=== PATIENT | male | born 1935 | race Caucasian/White ===

== ENCOUNTER 2017-06-10 09:20 | Emergency (ER) | payer OTHER ==
[2017-06-10 09:24] VITALS: O2SAT 98
[2017-06-10 09:25] VITALS: BMI 22.1
--- NOTE | 2017-06-10 10:23 | ED PDOC ---
HPI: Male Pain Time Seen by Provider: 06/10/17 09:28 Chief Complaint (Nursing): Male Genitourinary Chief Complaint (Provider): Male Genitourinary History Per: Patient History/Exam Limitations: no limitations Onset/Duration Of Symptoms: Days Current Symptoms Are (Timing): Still Present Associated Symptoms: Urinary Symptoms Additional Complaint(s): Vasquez is an 82 y/o male with a past medical history of hypertension and diabetes , who presents to the ED for evaluation of catheter dysfunction. 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 While here, he reports having pain and dysuria. Patient was given antibiotics from a walk-in clinic, with no improvement. Today had increased difficulty urinating and felt like the catheter was clogged. Denies fever, vomiting, and diarrhea. PMD: Unknown Past Medical History Reviewed: Historical Data, Nursing Documentation, Vital Signs Vital Signs: Last Vital Signs Temp 96.3 F L 06/10/17 09:39 Pulse 93 H 06/10/17 09:39 Resp 20 06/10/17 09:39 BP 151/67 H 06/10/17 09:39 Pulse Ox 98 06/10/17 09:39 - Medical History PMH: Benign Prostatic Hyperplasia, Hiatal Hernia, HTN - Surgical History Surgical History: Hernia Repair Other surgeries: Rectal fistula surgery, cataract surgery - Family History Family History: States: Unknown Family Hx - Home Medications Home Medications: Ambulatory Orders Medication Instructions Recorded Phenazopyridine HCl [Pyridium] 100 mg PO BID #6 tab 06/11/17 traMADol [Ultram] 50 mg PO TID PRN #12 tab 06/11/17 - Allergies Allergies/Adverse Reactions: Allergies Allergy/AdvReac Type Severity Reaction Status Date / Time Penicillins Allergy ANAPHYLAXIS Verified 06/11/17 12:45 Review of Systems ROS Statement: Except As Marked, All Systems Reviewed And Found Negative Constitutional: Negative for: Fever Gastrointestinal: Negative for: Vomiting, Diarrhea Genitourinary Male: Positive for: Dysuria, Frequency, Other (Catheter clogged) Physical Exam - Reviewed Nursing Documentation Reviewed: Yes Vital Signs Reviewed: Yes - Physical Exam Appears: Positive for: Non-toxic, No Acute Distress Head Exam: Positive for: ATRAUMATIC, NORMAL INSPECTION, NORMOCEPHALIC Eye Exam: Positive for: EOMI, Normal appearance, PERRL Neck: Positive for: Normal, Painless ROM, Supple Cardiovascular/Chest: Positive for: Regular Rate, Rhythm. Negative for: Murmur Respiratory: Positive for: Normal Breath Sounds. Negative for: Accessory Muscle Use, Respiratory Distress Gastrointestinal/Abdominal: Positive for: Normal Exam, Soft. Negative for: Tenderness Male Genital Exam: Positive for: other (Becker site appears clean, dry, intact) Extremity: Positive for: Normal ROM. Negative for: Deformity Neurologic/Psych: Positive for: Alert, Oriented - ECG O2 Sat by Pulse Oximetry: 98 (RA) Pulse Ox Interpretation: Normal Medical Decision Making Medical Decision Making: Time: 9:57 Initial Plan: --Urine culture --Urinalysis --Becker catheter insertion Time: 11:00 --Becker had small clot when nurse changed it, now freely flowing clear urine --Patient will continue antibiotics and follow up with urologist in 1-2 days, referral provided today. --There is agreement to discharge plan. Return if symptoms persist or worsen. discuss with pt and anton Clinical Impression: UTI, Becker catheter in place Scribe Attestation: Documented by Shauna Givens, acting as a scribe for Obed Valverde MD Provider Scribe Attestation: All medical record entries made by the Scribe were at my direction and personally dictated by me. I have reviewed the chart and agree that the record accurately reflects my personal performance of the history, physical exam, medical decision making, and the department course for this patient. I have also personally directed, reviewed, and agree with the discharge instructions and disposition. Disposition - Clinical Impression Clinical Impression: Urinary tract infection, Becker catheter in place - Patient ED Disposition Is Patient to be Admitted: No Counseled Patient/Family Regarding: Diagnosis, Need For Followup - Disposition Referrals: [facility] [Outside] Js Rosario MD [Medical Doctor] - Disposition: Routine/Home Disposition Time: 11:00 Condition: IMPROVED Additional Instructions: follow up with your urologist in 1-2 days continue antibiotics as previously prescribed return to the ED with any worsening or concerning symptoms Instructions: Becker Catheter Placement and Care (ED), Urinary Leg Bag (GEN) Forms: [employer] (Honduran)
[2017-06-10 10:59] LABS: RBC URINE 419 /hpf (0-3); URINE BACTERIA RARE (<OCC); URINE BILIRUBIN NEGATIVE (NEGATIVE); URINE BLOOD LARGE (NEGATIVE); URINE COLOR YELLOW (YELLOW); URINE GLUCOSE (UA) 50 mg/dL (Normal); URINE KETONE TRACE mg/dL (NEGATIVE); URINE LEUKOCYTE ESTERASE SMALL Leu/uL (Negative); URINE PROTEIN 100 mg/dL (NEGATIVE); URINE UROBILINOGEN 0.2-1.0 mg/dL (0.2-1.0)
[2017-06-10 11:00] LABS: WBC URINE 9 /hpf (0-5)
[2017-06-10 11:48] VITALS: BP 140/63; PULSE 85; RESP 16; TEMP 98
== END 2017-06-10 11:48 | disposition home or self-care (01) ==
LOC: H.ER 09:20
DX: N39.0 Urinary tract infection, site not specified (principal); Z46.6 Encounter for fitting and adjustment of urinary device

== ENCOUNTER 2017-06-11 12:19 | Emergency (ER) | payer OTHER ==
[2017-06-11 12:19] VITALS: BMI 22.1
[2017-06-11 12:46] VITALS: BP 160/77; PULSE 83; RESP 17; TEMP 98.7; O2SAT 98
[2017-06-11] MEDS ORDERED: Sodium Chloride 0.9% 1,000 ML IV STA (13:12)
[2017-06-11 13:59] LABS: BASO # 0.1 K/uL (0.0-0.2); BASO % 0.6 % (0.0-2.0); EOS # 0.1 K/uL (0.0-0.7); EOS % 1.7 % (0.0-4.0); HEMATOCRIT 41.4 % (35.0-51.0); LYMPH # 1.9 K/uL (1.0-4.3); MEAN CELL VOLUME 89.2 fl (80.0-94.0); MEAN CORPUSCULAR HEMOGLOBIN 29.8 pg (27.0-31.0); MEAN CORPUSCULAR HGB CONC 33.3 g/dL (33.0-37.0); MEAN PLATELET VOLUME 9.2 fl (7.2-11.7); MONO # 0.5 K/uL (0.0-0.8); MONO % 6.2 % (0.0-10.0); NEUT # 5.4 K/uL (1.8-7.0); NEUT % 67.5 % (50.0-75.0); RED CELL DISTRIBUTION WIDTH 14.1 % (11.5-14.5)
--- NOTE | 2017-06-11 15:19 | ED PDOC ---
HPI: Male Pain Time Seen by Provider: 06/11/17 12:51 Chief Complaint (Nursing): Male Genitourinary Chief Complaint (Provider): Male Genitourinary History Per: Patient History/Exam Limitations: no limitations Onset/Duration Of Symptoms: Days (x2) Current Symptoms Are (Timing): Still Present Additional Complaint(s): Vasquez is an 82 y/o male with a past medical history of hypertension and diabetes , who returns to the ED for evaluation of catheter dysfunction. Patient presents with dribbling from his indwelling Becker catheter, and is concerned about clotting in the device. Was seen here yesterday for same complaint, had catheter changed, and was discharged home. Patient is currently taking Bactrim for presumed UTI found at an urgent care over the weekend. Denies fever and back pain. Patient is from the and is here on vacation. PMD: Unknown Past Medical History Reviewed: Historical Data, Nursing Documentation, Vital Signs Vital Signs: Last Vital Signs Temp 98.7 F 06/11/17 12:46 Pulse 83 06/11/17 12:46 Resp 17 06/11/17 12:46 BP 160/77 H 06/11/17 12:46 Pulse Ox 98 06/11/17 12:46 - Medical History PMH: Benign Prostatic Hyperplasia, Diabetes, Hiatal Hernia, HTN - Surgical History Surgical History: Hernia Repair Other surgeries: Rectal fistula, cataracts, prostate surgery - Family History Family History: States: Unknown Family Hx - Social History Current smoker - smoking cessation education provided: No Alcohol: None Drugs: Denies - Home Medications Home Medications: Ambulatory Orders Medication Instructions Recorded Phenazopyridine HCl [Pyridium] 100 mg PO BID #6 tab 06/11/17 traMADol [Ultram] 50 mg PO TID PRN #12 tab 06/11/17 - Allergies Allergies/Adverse Reactions: Allergies Allergy/AdvReac Type Severity Reaction Status Date / Time Penicillins Allergy ANAPHYLAXIS Verified 06/11/17 12:45 Review of Systems ROS Statement: Except As Marked, All Systems Reviewed And Found Negative Constitutional: Negative for: Fever Genitourinary Male: Positive for: Dysuria, Other (Catheter - concern for clotting) Musculoskeletal: Negative for: Back Pain Physical Exam - Reviewed Nursing Documentation Reviewed: Yes Vital Signs Reviewed: Yes - Physical Exam Appears: Positive for: Well, Non-toxic, No Acute Distress Gastrointestinal/Abdominal: Positive for: Soft, Tenderness (Mild suprapubic tenderness) Male Genital Exam: Positive for: other (Indwelling catheter with no discharge from penile meatus. Urine appears dark and cloudy with no gross clots) Neurologic/Psych: Positive for: Alert, Oriented - Laboratory Results Result Diagrams: 06/11/17 14:00 06/11/17 14:20 - ECG O2 Sat by Pulse Oximetry: 98 (RA) Pulse Ox Interpretation: Normal Medical Decision Making Medical Decision Making: Time: 13:12 Initial Plan: --CMP --CBC w/ differential --POC blood glucose --Sodium chloride IV 1000 ml at 1000 mls/hr --Discussed case with Urologist, Dr. Rosario, who recommends to do a bladder scan and flush the Becker. He will see patient in the office tomorrow. Time: 15:20 --Bladder scan completed by nurse at bedside. No volume was noted in bladder. Scribe Attestation: Documented by Shauna Givens, acting as a scribe for Otilio Simpson III, DO Provider Scribe Attestation: All medical record entries made by the Scribe were at my direction and personally dictated by me. I have reviewed the chart and agree that the record accurately reflects my personal performance of the history, physical exam, medical decision making, and the department course for this patient. I have also personally directed, reviewed, and agree with the discharge instructions and disposition. Disposition - Clinical Impression Clinical Impression: Obstructed Becker catheter - Patient ED Disposition Is Patient to be Admitted: No Counseled Patient/Family Regarding: Studies Performed, Diagnosis, Need For Followup - Disposition Referrals: Js Rosario MD [Medical Doctor] - Disposition: Routine/Home Disposition Time: 14:00 Condition: STABLE Additional Instructions: See Dr Rosario tomorrow as directed. Continue antibiotics as prior prescribed. Drink plenty of water. Return to ER or call urologist if no urine in bag x5 hours. Prescriptions: Phenazopyridine HCl [Pyridium] 100 mg PO BID #6 tab traMADol [Ultram] 50 mg PO TID PRN #12 tab PRN Reason: Pain, Moderate (4-7) Instructions: Becker Catheter Placement and Care (ED), Urinary Leg Bag (GEN) Forms: In [employer] (Qatari)
[2017-06-11 15:25] LABS: ALB/GLOB RATIO 1.4 (1.0-2.1); ALKALINE PHOSPHATASE 63 U/L (38-126); ALT/SGPT 43 U/L (21-72); AST/SGOT 29 U/L (17-59); BILIRUBIN,TOTAL 0.4 mg/dl (0.2-1.3); BLOOD UREA NITROGEN 18 mg/dl (9-20); CALCIUM 9.7 mg/dL (8.4-10.2); CARBON DIOXIDE 19 mmol/L (22-30); CHLORIDE 107 mmol/L (98-107); GFR AFRICAN-AMERICAN > 60; GLUCOSE,RANDOM 93 mg/dL (75-110); POTASSIUM 4.2 MMOL/L (3.6-5.0); SODIUM 142 mmol/l (132-148); TOTAL PROTEIN 7.3 G/DL (6.3-8.2)
--- NOTE | 2017-06-11 17:45 | ED PDOC ---
- Laboratory Results Result Diagrams: 06/11/17 14:00 06/11/17 14:20 - ECG O2 Sat by Pulse Oximetry: 98 (RA) Pulse Ox Interpretation: Normal Medical Decision Making Medical Decision Making: Time: 17:00 --Patient is signed out to me by Dr. Otilio Simpson DO, pending urine bag clearing. Scribe Attestation: Documented by Shauna Givens, acting as a scribe for Nicolle Clay MD Provider Scribe Attestation: All medical record entries made by the Scribe were at my direction and personally dictated by me. I have reviewed the chart and agree that the record accurately reflects my personal performance of the history, physical exam, medical decision making, and the department course for this patient. I have also personally directed, reviewed, and agree with the discharge instructions and disposition. Disposition - Clinical Impression Clinical Impression: Obstructed Becker catheter - Disposition Referrals: Js Rosario MD [Medical Doctor] - Condition: STABLE Additional Instructions: See Dr Rosario tomorrow as directed. Continue antibiotics as prior prescribed. Drink plenty of water. Return to ER or call urologist if no urine in bag x5 hours. Prescriptions: Phenazopyridine HCl [Pyridium] 100 mg PO BID #6 tab traMADol [Ultram] 50 mg PO TID PRN #12 tab PRN Reason: Pain, Moderate (4-7) Instructions: Becker Catheter Placement and Care (ED), Urinary Leg Bag (GEN) Forms: [employer] (Czech)
== END 2017-06-11 18:06 | disposition home or self-care (01) ==
LOC: H.ER 12:19
DX: T83.091A Other mechanical complication of indwelling urethral catheter, initial encounter (principal); E11.9 Type 2 diabetes mellitus without complications; N40.0 Benign prostatic hyperplasia without lower urinary tract symptoms; I10 Essential (primary) hypertension; Z88.0 Allergy status to penicillin
CPT/HCPCS: 80053; 82948; 85025; 99285; J7040